=== PATIENT | female | born 1955 | race Caucasian/White ===

== ENCOUNTER 2020-10-12 14:21 | Observation (INO) ==
[2020-10-12 15:16] LABS: Basophils % 0.3 % (0.0-0.8); Eosinophils # 0.4 10*3/uL (0.0-0.87); Eosinophils % 4.9 % (0.00-10.9); Hematocrit 38.1 VOL% (35.7-47.0); Hemoglobin 12.3 GM/DL (12.0-16.0); Immature Granulocytes % 0.5 %; Immature Granulocytes Absolute 0.04 #; Lymphocytes # 2.1 10*3/uL (1.4-4.0); Lymphocytes % 23.5 % (21.3-54.2); Mean Corpuscular HGB Conc 32.3 GM/DL (32-36); Mean Corpuscular Volume 88.4 FL (87-102); Monocytes % 6.1 % (1.7-12.7); Neutrophils % 64.7 % (38.7-73.9); Platelet Count 217 T/CUMM (130-400); Red Blood Count 4.31 MC/CUMM (3.8-5.5); Red Cell Distribution Width 12.8 % (9.3-17.3); White Blood Count 8.8 T/CUMM (4-12)
[2020-10-12 15:22] LABS: Bacteria,Urine Occasional /HPF (Few); Bilirubin,Urine Negative (Negative); Blood, Urine Negative (Negative); Glucose,Urine (UA) Negative (Negative); Hyaline Casts,Urine 3 /LPF (0-3); Ketones,Urine Negative (Negative); Mucus,Urine Occasional /LPF (Occasional); Nitrite,Urine Negative (Negative); Protein,Urine Negative; RBC,Urine 1 /HPF (0-4); Squamous Epithelial Cell,Urine Occasional /HPF (0-10); Urine Appearance CLEAR (Clear); Urine Color Yellow (Yellow); Urine Specific Gravity 1.006 (1.001-1.035); Urine Urobilinogen < 2.0 EU/DL (0.2-1.0)
[2020-10-12] MEDS ORDERED: KETOROLAC 60 MG/2 ML VIAL IM STA (15:38)
[2020-10-12 15:50] LABS: Albumin 3.5 G/DL (3.4-5.0); Bilirubin,Total 0.5 MG/DL (0.2-1.0); Calcium 9.5 MG/DL (8.5-10.1); Osmolality,Calculated 274.5 MOS/KG (273-304); Potassium 3.9 MMOL/L (3.5-5.1); Total Protein 7.3 G/DL (6.4-8.2)
[2020-10-12] MEDS ORDERED: cefOXitin 1,000 MG in SODIUM CHLORIDE 0.9% 100 ML IV STA (16:33)
[2020-10-12] MEDS ORDERED: LIDOCAINE 2% 5 ML VIAL ONE (16:50)
[2020-10-12] MEDS ORDERED: ROCURONIUM 50 MG/5 ML VIAL IV ONE (16:50)
[2020-10-12] MEDS ORDERED: propofoL 200 MG/20 ML VIAL IV ONE (16:50)
[2020-10-12] MEDS ORDERED: DEXAMETHASONE 4 MG/1 ML VIAL ONE (16:50)
[2020-10-12] MEDS ORDERED: fentaNYL 100 MCG/2 ML VIAL ONE (16:50)
[2020-10-12] MEDS ORDERED: SUCCINYLCHOLINE 200 MG/10 ML VIAL ONE (16:50)
[2020-10-12] MEDS ORDERED: ONDANSETRON 4 MG/2 ML VIAL ONE (16:50)
[2020-10-12] MEDS ORDERED: BUPIVACAINE MPF 0.25% 30 ML VIAL ONE (17:10)
[2020-10-12] MEDS ORDERED: TISSUE ADHESIVE 1 EACH APPLICATOR TOP ONE (17:11)
[2020-10-12] MEDS ORDERED: LIDOCAINE 1% 20 ML VIAL ONE (17:11)
[2020-10-12] MEDS ORDERED: MORPHINE 4 MG/1 ML VIAL IV PRN (17:37)
[2020-10-12] MEDS ORDERED: ePHEDrine 50 MG/ML VIAL ONE (17:38)
[2020-10-12] MEDS ORDERED: SUGAMMADEX 200 MG/2 ML VIAL IV ONE (18:05)
[2020-10-12] MEDS ORDERED: SEVOFLURANE 1 UNIT/15 MINUTE INH ONE (18:42)
[2020-10-13] MEDS: IBUPROFEN 400 MG TABLET PO PRN ×2 (05:05→11:05)
[2020-10-13 05:15] LABS: Basophils % 0.3 % (0.0-0.8); Eosinophils # 0.3 10*3/uL (0.0-0.87); Eosinophils % 3.5 % (0.00-10.9); Hematocrit 33.5 VOL% (35.7-47.0); Hemoglobin 10.7 GM/DL (12.0-16.0); Immature Granulocytes % 0.4 %; Immature Granulocytes Absolute 0.04 #; Lymphocytes # 2.1 10*3/uL (1.4-4.0); Lymphocytes % 22.4 % (21.3-54.2); Mean Corpuscular HGB Conc 31.9 GM/DL (32-36); Mean Corpuscular Volume 88.4 FL (87-102); Mean Platelet Volume 10.3 FL (9.6-12.0); Monocytes % 5.4 % (1.7-12.7); Platelet Count 191 T/CUMM (130-400); Red Blood Count 3.79 MC/CUMM (3.8-5.5); Red Cell Distribution Width 12.9 % (9.3-17.3); White Blood Count 9.3 T/CUMM (4-12)
[2020-10-13] MEDS: ACETAMINOPHEN 325 MG TABLET PO PRN ×2 (08:54→20:45)
[2020-10-14 08:17] VITALS: BP 139/74
== END 2020-10-14 12:30 | disposition home or self-care (01) ==
LOC: N.ED 14:21 → N.EDINP 14:21 → N.3E 19:10
PROVIDERS: ADMIT Surgery; ATTEND Surgery

== ENCOUNTER 2022-06-02 02:34 | Inpatient (IN) ==
[2022-06-02] MEDS ORDERED: POTASSIUM CHLORIDE 20 MEQ TABLET PO PRN (05:28)
[2022-06-02] MEDS ORDERED: ACETAMINOPHEN 325 MG TABLET PO PRN (05:28)
[2022-06-02] MEDS ORDERED: ZALEPLON 5 MG CAPSULE PO PRN (05:28)
[2022-06-02] MEDS ORDERED: MORPHINE 2 MG/1 ML SYRINGE IV PRN (05:28)
[2022-06-02] MEDS ORDERED: ONDANSETRON 4 MG/2 ML VIAL IV PRN (05:28)
[2022-06-02] MEDS ORDERED: hydrALAZINE 20 MG/1 ML VIAL IV PRN (05:28)
[2022-06-02] MEDS: ASPIRIN 325 MG TABLET PO SCH (06:32)
[2022-06-02 07:22] LABS: Basophils % 0.3 % (0.0-0.8); Eosinophils # 0.1 10*3/uL (0.0-0.87); Eosinophils % 0.8 % (0.00-10.9); Hematocrit 32.4 VOL% (35.7-47.0); Hemoglobin 10.6 GM/DL (12.0-16.0); Immature Granulocytes % 0.6 %; Immature Granulocytes Absolute 0.08 #; Lymphocytes % 15.4 % (21.3-54.2); Mean Corpuscular HGB Conc 32.7 GM/DL (32-36); Mean Platelet Volume 10.5 FL (9.6-12.0); Monocytes # 0.8 10*3/uL (0.11-0.8); Monocytes % 5.8 % (1.7-12.7); Neutrophils % 77.1 % (38.7-73.9); Platelet Count 249 T/CUMM (130-400); Red Blood Count 3.64 MC/CUMM (3.8-5.5); Red Cell Distribution Width 13.4 % (9.3-17.3); White Blood Count 13.2 T/CUMM (4-12)
[2022-06-02 07:55] LABS: Albumin 3.2 G/DL (3.4-5.0); Bilirubin,Total 0.6 MG/DL (0.20-1.00); Calcium 9.1 MG/DL (8.5-10.1); Osmolality,Calculated 281.3 MOS/KG (273-304); Risk Ratio 4.08; Thyroid Stimulating Hormone 4.92 uIU/ml (0.358-3.74); Total Protein 6.8 G/DL (6.4-8.2); VLDL Cholesterol 16.4 MG/DL
[2022-06-02] MEDS ORDERED: MAGNESIUM SULF RIDER 4 GM/100 ML PREMIX IV ONE (08:11)
[2022-06-02] MEDS ORDERED: POTASSIUM CHLORIDE 20 MEQ TABLET PO ONE (08:11)
[2022-06-02] MEDS ORDERED: ENOXAPARIN 40 MG/0.4 ML SYRINGE SUBCUT SCH (09:00)
[2022-06-02] MEDS ORDERED: NEBIVOLOL 5 MG TABLET PO SCH (09:00)
[2022-06-02] MEDS ORDERED: POTASSIUM CHLORIDE RIDER 10 MEQ/100 ML PREMIX IV PRN (09:15)
[2022-06-02] MEDS ORDERED: MAGNESIUM SULF RIDER 2 GM/50 ML PREMIX IV PRN (09:15)
[2022-06-02] MEDS ORDERED: SODIUM CHLORIDE 0.9% 1,000 ML IV SCH (09:30)
[2022-06-02] MEDS: ENOXAPARIN 80 MG/0.8 ML SYRINGE SUBCUT SCH ×2 (09:50→21:56)
[2022-06-02] MEDS: PANTOPRAZOLE 40 MG TABLET PO SCH (09:51)
[2022-06-02] MEDS: LOSARTAN 25 MG TABLET PO SCH (09:51)
[2022-06-02] MEDS: ROSUVASTATIN 20 MG TABLET PO SCH (09:52)
[2022-06-02] MEDS: FUROSEMIDE 40 MG/4 ML VIAL IV SCH ×3 (09:53→23:11)
[2022-06-02] MEDS: DIAZEPAM 5 MG TABLET PO ONE ×2 (10:07→10:15)
[2022-06-02] MEDS: methylPREDNISolone SOD SUC 125 MG/2 ML VIAL IV SCH ×2 (10:07→23:11)
[2022-06-02] MEDS: FAMOTIDINE INJ 40 MG in SODIUM CHLORIDE 0.9% 100 ML IV SCH ×2 (10:41→22:41)
[2022-06-02] MEDS ORDERED: HEPARIN/NACL 0.9% 2 UNITS/ML 2,000 UNIT/1,000 ML BAG IV ONE (10:42)
[2022-06-02] MEDS ORDERED: NITROGLYCERIN DRIP 50 MG/250 ML BOTTLE IV ONE (10:49)
[2022-06-02] MEDS ORDERED: VERAPAMIL 5 MG/2 ML VIAL ONE (10:49)
[2022-06-02] MEDS ORDERED: HYDROmorphone 1 MG/1 ML SYRINGE ONE (10:55)
[2022-06-02] MEDS ORDERED: MIDAZOLAM 2 MG/2 ML VIAL ONE (10:55)
[2022-06-02] MEDS ORDERED: diphenhydrAMINE CAP 50 MG CAPSULE PO ONE (11:00)
[2022-06-03 06:17] LABS: Basophils % 0.2 % (0.0-0.8); Hematocrit 35.2 VOL% (35.7-47.0); Hemoglobin 11.8 GM/DL (12.0-16.0); Immature Granulocytes % 0.9 %; Lymphocytes # 1.7 10*3/uL (1.4-4.0); Lymphocytes % 15.9 % (21.3-54.2); Mean Corpuscular HGB Conc 33.5 GM/DL (32-36); Mean Corpuscular Volume 89.3 FL (87-102); Mean Platelet Volume 11.1 FL (9.6-12.0); Monocytes # 0.2 10*3/uL (0.11-0.8); Monocytes % 1.5 % (1.7-12.7); Neutrophils % 81.5 % (38.7-73.9); Platelet Count 297 T/CUMM (130-400); Red Blood Count 3.94 MC/CUMM (3.8-5.5); Red Cell Distribution Width 13.2 % (9.3-17.3); White Blood Count 10.9 T/CUMM (4-12)
[2022-06-03 06:27] LABS: Calcium 9.4 MG/DL (8.5-10.1); Osmolality,Calculated 285.3 MOS/KG (273-304); Potassium 2.9 MMOL/L (3.5-5.1)
[2022-06-03] MEDS ORDERED: POTASSIUM CHLORIDE 20 MEQ TABLET PO ONE ×2 (09:33→12:00)
[2022-06-03] MEDS ORDERED: MAGNESIUM SULF RIDER 2 GM/50 ML PREMIX IV ONE (09:34)
[2022-06-03] MEDS: LOSARTAN 25 MG TABLET PO SCH (09:35)
[2022-06-03] MEDS: ASPIRIN 325 MG TABLET PO SCH (09:35)
[2022-06-03] MEDS: ENOXAPARIN 80 MG/0.8 ML SYRINGE SUBCUT SCH (09:35)
[2022-06-03] MEDS: ROSUVASTATIN 20 MG TABLET PO SCH (09:35)
[2022-06-03] MEDS: PANTOPRAZOLE 40 MG TABLET PO SCH (09:35)
[2022-06-03] MEDS: FUROSEMIDE 40 MG/4 ML VIAL IV SCH (09:37)
[2022-06-03] MEDS: FAMOTIDINE INJ 40 MG in SODIUM CHLORIDE 0.9% 100 ML IV SCH (09:39)
[2022-06-03] MEDS: methylPREDNISolone SOD SUC 125 MG/2 ML VIAL IV SCH (10:04)
[2022-06-03 13:40] VITALS: BP 136/74
== END 2022-06-03 15:25 | disposition home or self-care (01) | DRG 286 ==
LOC: N.TELES 04:06 → SUATTDRO 04:06
PROVIDERS: ADMIT Internal Medicine; ATTEND Emergency Medicine
PROC: CLCCHCL (ICD-10-PCS; 2022-06-02 11:45)